=== PATIENT | male | born 1980 | race Caucasian/White ===

== ENCOUNTER 2016-11-12 19:20 | Emergency (ER) | payer OTHER ==
[2016-11-12] MEDS: AMOXICILLIN/POT 875/125 1 EACH PO ONE (20:31)
[2016-11-12] MEDS: DIPH,PERTUSS(ACELL),TET VAC/PF 0.5 ML DISP.SYRIN IM ONE (20:32)
[2016-11-12 20:47] VITALS: BP 119/68
--- NOTE | 2016-12-24 14:31 | ED Physician Documentation ---
Lower Extremity Injury - HISTORIAN Historian: patient - HPI Stated Complaint: right middle toe swelling/pain/redness Chief Complaint: Lower Extremity Injury Additional Information: PT STEPPED ON THORN 2 DAYS AGO-RT 3RD TOE SLIGHT SWELLING AND TENDER TO TOUCH. Onset: days ago (2) Where: home Severity: moderate Context: other (PUNCURE WOUND PT STATES FEEL AALL THORN REMOVED BECAUSE POINT APPOEARED TOTAL) - ROS CONST: no problems CVS/RESP: none GI/: denies: problems urinating, nausea, vomiting MS/SKIN/LYMPH: foot swelling (TOE ONLY) - PAST HX Past History: none Allergies/Adverse Reactions: Allergies Allergy/AdvReac Type Severity Reaction Status Date / Time No Known Allergies Allergy Verified 11/12/16 20:12 Home Medications: Ambulatory Orders Medication Instructions Recorded Amoxicillin/Potassium Clav 1 each PO BID 10 Days #25 tablet 11/12/16 [Augmentin 500-125 Tablet] - SOCIAL HX Smoking History: non-smoker Alcohol Use: none Drug Use: none - FAMILY HX Family History: no significant history - VITAL SIGNS Vital Signs: Vital Signs Temp Pulse Resp BP Pulse Ox 98.9 F 89 16 119/68 99 11/12/16 19:40 11/12/16 20:45 11/12/16 20:45 11/12/16 20:45 11/12/16 20:45 - REVIEWED ASSESSMENTS Nursing Assessment Reviewed: Yes Vitals Reviewed: Yes ED Results Lab/Radiology - Orders Orders: ED Orders Category Date Time Status Amoxicillin/Potassium Clav [Augmentin 875Mg/125Mg] Med 11/12/16 20:12 Discontinued 2 each PO NOW ONE Diph,Pertuss(Acell),Tet Vac/Pf [Adacel] Med 11/12/16 20:14 Discontinued 0.5 ml IM .ONCE ONE Lower Extremities Injury Phy - Physical Exam General Appearance: other (TOE RED SWOLLEN TENDER TO TOUCH) Gait: limited by pain Neuro/Vascular/Tendon: no vascular compromise, motor nml, sensation nml, abnml color, abnml warmth, ROM limited by pain. No: abnml cap refill, tendon injury Resp/CVS: chest non-tender, breath sounds nml, heart sounds nml, lungs clear, reg. rate & rhythm Abdomen: non-tender Discharge Clincal Impression: THORN INJURY W/INFECTION RT 3RD TOE Prescriptions: Amoxicillin/Potassium Clav [Augmentin 500-125 Tablet] 1 each PO BID 10 Days #25 tablet Referrals: Joe Chow MD [Primary Care Provider] - 2 Days Comments: MEDS DIRECTED HOT SOAKS HELPFUL. F/U W/PCP OR RTED Condition: Good Disposition: 01 HOME, SELF-CARE Decision to Admit: NO Decision Time: 19:27
== END 2016-11-12 20:40 | disposition home or self-care (01) ==
LOC: ED 19:20
DX: S91.134A Puncture wound without foreign body of right lesser toe(s) without damage to nail, initial encounter (principal); X58.XXXA Exposure to other specified factors, initial encounter; Y93.9 Activity, unspecified; Y99.9 Unspecified external cause status
CPT/HCPCS: 90471; 90715; 99283